=== PATIENT | female | born 1965 | race Caucasian/White ===

== ENCOUNTER 2018-04-26 11:38 | Observation (INO) | payer BC ==
[~2018-04-26] VITALS: Ht 170.2 cm; Wt 66.2 kg
[~2018-04-26 11:38] MED LIST: CELEBREX200 MG PO; DOXYCYCLINE HYC20 MG PO; ESTRADIOL1 MG PO; FINACEA 15% GEL50 GM TP; SPIRONOLACTONE25 MG PO; TAZORAC 0.05% C30 GM TP; TRIAMTERENE-HC1 EACH PO; WELLBUTRIN XL300 MG PO
[2018-04-26 12:15] LABS: BASOPHIL (%) 0.7 % (0-1); EOSINOPHIL (%) 0.3 % (0-5); HEMATOCRIT 42.2 % (36.0-46.0); HEMOGLOBIN 14.3 G/DL (11.9-15.5); IMMATURE GRANULOCYTE (%) 0.3 % (0.0-0.7); LYMPHOCYTE (%) 25.9 % (15-42); LYMPHOCYTE COUNT 1.5 K/uL (1.0-2.8); MCH 34.7 PG (29.0-34.0); MCHC 33.9 G/DL (30.0-36.0); MCV 102.4 FL (83-99); MONOCYTE (%) 8.8 % (3-12); MONOCYTE COUNT 0.5 K/uL (0-0.8); NEUTROPHIL COUNT 3.8 K/uL (1.8-6.4); PLATELET COUNT 277 K/uL (156-360); RBC DIS.WIDTH-CV 11.9 % (11.8-14.6); RBC DIS.WIDTH-SD 44.9 % (39-53); RED BLOOD COUNT 4.12 M/uL (3.80-5.20); WHITE BLOOD COUNT 5.9 K/uL (4.1-10.2)
[2018-04-26 12:23] LABS: PTT 29.7 SEC (25-37)
[2018-04-26 12:25] LABS: ALBUMIN 4.1 g/dL (3.2-4.8); CHLORIDE 105 mEq/L (99-109); POTASSIUM 3.9 mEq/L (3.7-5.4); SODIUM 143 mEq/L (136-147)
[2018-04-26 12:27] LABS: GLUCOSE 85 mg/dL (70-99)
[2018-04-26 12:29] LABS: TOTAL BILIRUBIN 0.5 mg/dL (0.0-1.0)
[2018-04-26 12:31] LABS: ALKALINE PHOSPHATASE 48 IU/L (3-129); CREATININE 0.8 mg/dL (0.6-1.3); GFR ESTIMATE (CALCULATED) > 59 mL/min/
[2018-04-26 12:32] LABS: UREA NITROGEN (BUN) 16 mg/dL (9-23)
[2018-04-26 12:33] LABS: AST (GOT) 16 IU/L (2-34)
[2018-04-26 12:34] LABS: ALT (GPT) 16 IU/L (3-49)
[2018-04-26 12:35] LABS: TROP-I INTERPRETATION NEGATIVE; TROPONIN-I < 0.01 ng/mL (0.0-0.30)
[2018-04-26] MEDS ORDERED: HYDROCHLOROTHIA25 MG PO (13:59)
[2018-04-26] MEDS ORDERED: ESTRADIOL0.5 MG PO (14:01)
[2018-04-26] MEDS ORDERED: VALTREX50 MG/ML PO (14:02)
[2018-04-26 18:09] VITALS: BP 109/65
[2018-04-26 20:31] VITALS: BP 123/71
[2018-04-26 23:04] VITALS: BP 116/65
[2018-04-27 04:34] VITALS: BP 117/67
[2018-04-27 07:56] VITALS: BP 119/59
[2018-04-27] MEDS ORDERED: TRAMADOL HCL50 MG PO (10:18)
[2018-04-27] MEDS ORDERED: COLACE100 MG PO (10:20)
== END 2018-04-27 11:01 | disposition home or self-care (01) ==
LOC: EME 11:38 → CATH 13:45 → EME 14:00 → 2SOUTH 15:45 → 4EAST 15:45 → ENRESERV 16:17 → 4EAST 17:51
PROVIDERS: Emergency Medicine
DX: I45.5 Other specified heart block (principal); R55 Syncope and collapse; L70.9 Acne, unspecified; I31.9 Disease of pericardium, unspecified; Z90.710 Acquired absence of both cervix and uterus
CPT/HCPCS: 71045; 80053; 84443; 84484; 85025; 85610; 85730; 93005; 99281; 99284; C1785; C1892; C1894; C1898; G0378; J0690; J1200; J2250; J3010; S0020